=== PATIENT | male | born 1995 | race Caucasian/White ===

== ENCOUNTER → 2020-09-26 10:37 | Outpatient (BNVA) | payer SELFPAY | PROVIDERS: Family Provider Nurse Practitioner; PCP Nurse Practitioner Family; Visit Provider Family Medicine | DX: J03.80 Acute tonsillitis due to other specified organisms (principal); B96.89 Other specified bacterial agents as the cause of diseases classified elsewhere | CPT/HCPCS: 87071; 87880 ==

== ENCOUNTER 2021-07-23 10:38 | Emergency (ER) | payer SELFPAY ==
[2021-07-23 11:38] VITALS: BP 133/83; PULSE 62; RESP 16; TEMP 36.6; O2SAT 98
[2021-07-23 14:19] LABS: Basophils # 0.1 10^3/uL (0.0-0.1); Basophils % 0.5 %; Eosinophils # 0.4 10^3/uL (0.0-0.8); Hematocrit 45.8 % (42.0-52.0); Hemoglobin 15.4 g/dL (11.7-16.6); Lymphocytes # 2.7 10^3/uL (0.8-4.8); Mean Corpuscular HGB Conc 33.6 g/dL (30.0-36.0); Mean Corpuscular Hemoglobin 28.8 pg (28.0-34.0); Mean Corpuscular Volume 85.6 fl (80-94); Mean Platelet Volume 9.9 fL (7.4-10.4); Monocytes # 0.9 10^3/uL (0.2-0.9); Monocytes % 8.8 %; Neutrophils # 5.83 10^3/uL (1.8-7.7); Neutrophils % 59.3 %; Nucleated Red Blood Cells % 0 %; Platelet Count 381 10^3/cmm (130-400); Red Blood Count 5.35 10^6/uL (4.1-5.3); Red Cell Distribution Width 12.6 % (12.1-15.1); White Blood Count 9.8 10^3/uL (4.0-10.0)
[2021-07-23 14:49] LABS: Alanine Aminotransferase 42 U/L (0-41); Albumin Level 4.5 g/dL (3.5-5.2); Alkaline Phosphatase 69 IU/L (40-130); Anion Gap 16.1 (5-19); Aspartate Amino Transferase 35 U/L (0-40); Blood Urea Nitrogen 13 mg/dL (6-20); Calcium 9.1 mg/dL (8.5-10.5); Carbon Dioxide 23 mmol/L (22-29); Chloride 103 mmol/L (98-107); Creatinine Clr Calc Pharmacy 156.7872; Globulin 2.8 g/dL (1.3-4.6); Glomerular Filtration Rate 116.9 mL/min (90-130); Glucose 96 mg/dL (65-115); Lipase 19 U/L (13-60); Osmolality Calculated 286 mOsm/kg (285-295); Potassium 4.1 mmol/L (3.5-5.1); Sodium 138 mmol/L (136-145); Total Bilirubin 0.4 mg/dL (0.15-1.2); Total Protein 7.3 g/dL (6.6-8.7)
[2021-07-23 15:00] VITALS: BP 132/76; PULSE 62; RESP 18; O2SAT 100
--- NOTE | 2021-07-23 15:19 | PC.NURSE ---
Per provider, cancel UA order.
--- NOTE | 2021-07-23 15:34 | W.ED.GIBLEED ---
HPI - GI Bleed General: Chief complaint: Abdominal Pain Stated complaint: BLOODY STOOL SINCE THIS MORNING Time Seen by Provider: 07/23/21 14:48 Source: patient Mode of arrival: ambulatory Limitations: no limitations History of Present Illness: HPI Narrative: Patient is a nice 26-year-old male who presents to ED today with a complaint of an episode of hematochezia. Patient states this morning he had a bowel movement that had a very large amount of red blood. He states previously he has had occasional episodes where he has noticed a few drops of blood when he wipes but has never experienced anything like this. He denies constipation/straining. He has not had any changes to caliber of his stools or changes in frequency. No history of hemorrhoids. No sensation of rectal swelling or fullness. Denies any rectal trauma/penetration. Denies abdominal pain. Previously he has had occasional abdominal pains alleviated by defecation. MD complaint: gross hematochezia Onset (ago): hour(s) Associated symptoms: Reports no associated symptoms; Denies abdominal pain, chills, fever(s), malaise, nausea, rash or vomiting Treatments Prior to Arrival: none Review of Systems Const: Denies: fever(s), chills, body aches, fatigue or malaise Card: Denies: chest pain Resp: Denies: dyspnea GI: Reports: hematochezia; Denies: abdominal pain, nausea, vomiting, diarrhea, bloating, GI cramping, pain on defecation, rectal pain or change in stool character Musc: Denies: back pain Skin/Breast: Denies: rash PFS ED PFSH: Medical History (Updated 07/23/21 @ 16:53 by DARRIN Ventura) Anxiety Social History (Updated 10/04/19 @ 16:13 by Ava Schultz LPN) Smoking and tobacco status: never smoked Alcohol intake: never Lives independently: Yes Household members: family Housing: House Marital status: Single Physical Exam Const: COMMON NORMALS: no acute distress, average body habitus, patient oriented x3, no limitations, healthy appearing, alert and well nourished GENERAL APPEARANCE: cooperative Resp: COMMON NORMALS: normal respiratory effort and clear to auscultation bilaterally AUSCULTATION: clear to auscultation bilaterally Cardio: COMMON NORMALS: regular rate and regular rhythm RATE: regular rate RHYTHM: regular rhythm GI: COMMON NORMALS: Normal to inspection, nondistended, normoactive bowel sounds present, Soft to palpation, non-tender, No hepatosplenomegaly present and no masses INSPECTION: Yes normal to inspection AUSCULTATION: Yes normoactive bowel sounds PALPATION: Yes Soft to palpation and Yes No hepatosplenomegaly present RECTAL EXAM: Yes visual inspection normal, Yes normal sphincter tone and Yes heme positive stool Neuro: COMMON NORMALS: patient oriented x3 SENSORIUM/ORIENTATION: Yes alert Course Vital Signs: Vital signs: Vital Signs Temperature 97.9 F 07/23/21 11:38 Pulse Rate 57 L 07/23/21 16:00 Respiratory Rate 18 07/23/21 16:00 Blood Pressure 128/73 07/23/21 16:00 Pulse Oximetry 99 07/23/21 16:00 MDM - GI Bleed MDM Narrative: Medical decision making narrative: Patient here with one episode of hematochezia. Vital signs are normal. Labs are unremarkable. He states he has since had another bowel movement where he did not notice blood. His Hemoccult was positive here. CT scan is normal. At this time I recommend monitoring very closely and following up with primary care if he has any further episodes-possible referral for colonoscopy if symptoms continued but I think with a normal CT scan and only one episode we could hold off on this at this time. He was given strict instructions to return to the ED for severe, worsening, or frequent episodes of hematochezia in addition to severe abdominal pain or fevers. Lab Data: Labs: Lab Results 07/23/21 07/23/21 14:09 14:09 WBC 9.8 10^3/uL 10^3/ uL (4.0-10.0) RBC 5.35 10^6/uL H 10 ^6/uL (4.1-5.3) Hgb 15.4 g/dL g/dL (11.7-16.6) Hct 45.8 % % (42.0-52.0) MCV 85.6 fl fl (80-94) MCH 28.8 pg pg (28.0-34.0) MCHC 33.6 g/dL g/dL (30.0-36.0) RDW 12.6 % % (12.1-15.1) Plt Count 381 10^3/cmm 10^3 /cmm (130-400) MPV 9.9 fL fL (7.4-10.4) Neut % (Auto) 59.3 % % Lymph % (Auto) 27.0 % % [place] % (Auto) 8.8 % % Eos % (Auto) 4.0 % % Baso % (Auto) 0.5 % % Neut # (Auto) 5.83 10^3/uL 10^3 /uL (1.8-7.7) Lymph # (Auto) 2.7 10^3/uL 10^3/ uL (0.8-4.8) [place] # (Auto) 0.9 10^3/uL 10^3/ uL (0.2-0.9) Eos # (Auto) 0.4 10^3/uL 10^3/ uL (0.0-0.8) Baso # (Auto) 0.1 10^3/uL 10^3/ uL (0.0-0.1) Nucleated RBC % (a uto) 0 % % Nucleated RBCs # 0.0 /100WBC /100W BC Sodium 138 mmol/L mmol/L (136-145) Potassium 4.1 mmol/L mmol/L (3.5-5.1) Chloride 103 mmol/L mmol/L (98-107) Carbon Dioxide 23 mmol/L mmol/L (22-29) Anion Gap 16.1 (5-19) BUN 13 mg/dL mg/dL (6-20) Creatinine 0.8 mg/dL mg/dL (0.7-1.2) GFR Calculation 116.9 mL/min mL/m in (90-130) Glucose 96 mg/dL mg/dL (65-115) Calculated Osmolal ity 286 mOsm/kg mOsm/ kg (285-295) Calcium 9.1 mg/dL mg/dL (8.5-10.5) Total Bilirubin 0.4 mg/dL mg/dL (0.15-1.2) AST 35 U/L U/L (0-40) ALT 42 U/L H U/L (0-41) Alkaline Phosphata se 69 IU/L IU/L (40-130) Total Protein 7.3 g/dL g/dL (6.6-8.7) Albumin 4.5 g/dL g/dL (3.5-5.2) Globulin 2.8 g/dL g/dL (1.3-4.6) Lipase 19 U/L U/L (13-60) Imaging Data^: CT Abd/Pel: Radiologist's impression: [facility] [address] [place] [address] CT Scan Report Signed Patient: Andrade Ndiaye Unit #: [id number] : 1995 Age/Sex: 26 / M ADM Date: 07/23/21 Loc: ER Room/Bed: Attending Dr: Ordering Provider/Ordering MD: Le Delgadillo Date of Service: 07/23/21 Procedure(s): CT abdomen pelvis w con* [id number] Accession Number(s): [id number] Report Number: [id number] PROCEDURE INFORMATION: Exam: CT Abdomen And Pelvis With Contrast Exam date and time: 07/23/2021 3:34 PM Age: 26 years old Clinical indication: Other: Rectal bleeding; Additional info: Bloody stools/rectal bleeding TECHNIQUE: Imaging protocol: Computed tomography of the abdomen and pelvis with contrast. Axial, coronal and sagittal reformatted images were created and reviewed. Radiation optimization: All CT scans at this facility use at least one of these dose optimization techniques: automated exposure control; mA and/or kV adjustment per patient size (includes targeted exams where dose is matched to clinical indication); or iterative reconstruction. Contrast material: OMNI 300; Contrast volume: 95 ml; Contrast route: INTRAVENOUS (IV); COMPARISON: CR Chest 1 [place] [id number] 05/02/2018 4:07 AM RADIATION DOSE METRICS: Total DLP (mGy-cm): 1477.82 FINDINGS: Lungs: Left lower lobe calcified granuloma. Liver: Coarse calcified hepatic granulomata. Gallbladder and bile ducts: No radiodense gallstones. No biliary ductal dilatation. Pancreas: Unremarkable. Spleen: Coarse calcified splenic granulomata. Adrenal glands: Normal. No mass. Kidneys and ureters: No mass. No radiodense calculi. No hydronephrosis. Stomach and bowel: No bowel wall thickening. No obstruction. No pneumatosis. Appendix: Normal. Intraperitoneal space: No free fluid. No organized fluid collection. No free air. Vasculature: Unremarkable. No aneurysm. Lymph nodes: No pathologically enlarged lymph nodes. Urinary bladder: Unremarkable as visualized. Reproductive: Unremarkable. Bones/joints: No acute osseous abnormality. Soft tissues: Unremarkable. CT/CT abdomen pelvis w con* [id number]: 1[address] No CT evidence of acute intra-abdominal or pelvic pathology. 2. Additional findings, as above. Dictated By: Rosendo Lopez MD Signed By: Rosendo Lopez MD Signed Date/Time: 07/23/21 1645 DD/ 1534 Discharge Plan Discharge Patient Disposition: Home Clinical Impression: Hematochezia Condition: Stable Prescriptions: No Action Claritin 10 mg Tablet 10 mg PO DAILY RF: 0 Discharge Orders: Discharge ED (Routine); Ordered 07/23/21 Ordered By: Le Delgadillo Referrals: Angelica Escamilla, PHILIPC [Primary Care Provider] - Patient Instructions: Rectal Bleeding (ED) Activity Restrictions/Additional Instructions: As we discussed you need to monitor symptoms closely and follow-up with primary care as soon as possible for further evaluation. You need to return to the emergency department immediately for multiple bloody stools, severe abdominal pain, fevers, lightheadedness/dizziness/passing out episodes, or any other concerns you may have. Coding Level of Care Code ED Soil Chemist for Chg Fwd Exam Expanded Problem Focused
[2021-07-23 16:00] VITALS: BP 128/73; PULSE 57; RESP 18; O2SAT 99
[2021-07-23] MEDS: iohexol 300 mg/mL 100 mL Btl IV (16:18)
[2021-07-23 17:07] VITALS: BP 148/80; PULSE 63; RESP 18; O2SAT 100
== END 2021-07-23 17:08 | disposition home or self-care (01) ==
PROVIDERS: Emergency Medicine; Emergency Provider Physician Assistant; PCP Nurse Practitioner
DX: K92.1 Melena (principal)
CPT/HCPCS: 36415; 74177; 80053; 83690; 85025; 99283; Q9967